=== PATIENT | female | born 1985 | race Caucasian/White ===

== ENCOUNTER → 2018-08-29 | Outpatient (CLI) | payer OTHER ==
--- NOTE | 2018-08-29 19:19 | Diagnostic Imaging Report ---
INDICATION: Palpable lump in the medial left breast. COMPARISON: No prior mammograms are available for comparison. TECHNIQUE: 2D and 3D bilateral diagnostic mammography was performed with computer-aided detection (CAD) system. FINDINGS: Both breasts are heterogeneously dense, limiting the sensitivity of mammography. A BB marker was placed at the area of palpable abnormality in the medial left breast. No underlying abnormality is seen. Both breasts are without evidence of mass or malignant appearing microcalcifications. The axillae are unremarkable. IMPRESSION: No mammographic features suspicious for malignancy are identified. Even so, directed sonographic interrogation of the area of palpable abnormality in the medial left breast is recommended and will be performed this morning. ACR BI-RADS Category 0: Incomplete. (Needs additional imaging evaluation). Result letter will be mailed to the patient. Note: At least 10% of breast cancer is not imaged by mammography. Dictated by: Dictated on workstation # [id number]
--- NOTE | 2018-08-29 19:31 | Diagnostic Imaging Report ---
INDICATION: Palpable lump in the left breast. Correlation is made with diagnostic mammogram earlier the same day. FINDINGS: Sonographic interrogation of the 9-12 o'clock location of the left breast was performed at the area of palpable abnormality. Patient denies personally having a palpable abnormality. Patient states the area was felt by the nurse practitioner. No sonographic abnormality is seen. No solid or cystic masses are detected. IMPRESSION: No sonographic abnormality is detected. Continued clinical and self breast exam is recommended to confirm stability of the area of palpable abnormality. ACR BI-RADS Category 1: Negative. Dictated by: Dictated on workstation # [id number]
== END ==
LOC: RAD 08:22
PROVIDERS: ATTEND Nurse Practitioner Family
DX: N63.20 Unspecified lump in the left breast, unspecified quadrant (principal)
CPT/HCPCS: 77066